=== PATIENT | male | born 1980 | race Caucasian/White ===

== ENCOUNTER 2018-11-29 06:42 | Day surgery (SDC) | payer OTHER ==
[~2018-11-29] VITALS: Ht 172.7 cm; Wt 73.5 kg
[~2018-11-29 06:42] MED LIST: NKM
[2018-11-29] MEDS ORDERED: LR 1000ml 1,000 ML IVLG SCH ×2 (06:55→07:00)
--- NOTE | 2018-11-29 06:58 | Anethesia Preoperative Eval ---
Anesthesia Pre-op PMH/ROS General Date of Evaluation: November 29, 2018 Time of Evaluation: 06:56 Anesthesiologist: margarita ASA Score: ASA 3 Mallampati Score Class I : Soft palate, uvula, fauces, pillars visible Class II: Soft palate, uvula, fauces visible Class III: Soft palate, base of uvula visible Class IV: Only hard plate visible Mallampati Classification: Class II Surgeon: yogesh Diagnosis: colon screening, family hx/o colon cancer Surgical Procedure: colonoscopy Anesthesia History: none Social History: smoking - nonsmoker Family History: no anesthesia problems Allergies: Coded Allergies: No Known Allergies (Unverified , 11/28/18) Medications: see eMAR Patient NPO?: Yes Past Medical History Pulmonary: Reports: asthma Gastrointestinal/Genitourinary: Reports: other - family hx/o colon cancer HEENT: Reports: other - sinusitis Musculoskeletal/Integumentary: Reports: other - back pain Anesthesia Pre-op Phys. Exam Physician Exam Last Vital Signs Date Time Temp Pulse Resp B/P (MAP) Pulse Ox O2 Delivery O2 Flow Rate FiO2 11/29/18 07:10 97.8 48 18 122/81 98 Room Air Constitutional: NAD Neurologic: CN 2-12 intact Cardiovascular: RRR Respiratory: CTA Gastrointestinal: S/NT/ND Airway Exam Mallampati Score: Class II MO: full Neck: flexible TMD: 2fb ROM: full Teeth: intact Anesthesia Pre-op A/P Risk Assessment & Plan Assessment: asa3 Plan: mac Status Change Before Surgery: No Pre-Antibiotics Drug: Melva Guerrero MD November 29, 2018 06:58
[2018-11-29] MEDS ORDERED: Midazolam 2mg/2ml Inj IVP PRN (07:00)
[2018-11-29] MEDS ORDERED: fentaNYL 100 mcg/2 mL IV PRN (07:00)
[2018-11-29] MEDS ORDERED: Atropine Inj 1mg/10ml Syr IV PRN (07:00)
[2018-11-29] MEDS ORDERED: DiphenhydrAMINE 50mg/ml Inj IVP PRN (07:00)
[2018-11-29 07:10] VITALS: BP 122/81
[2018-11-29] MEDS ORDERED: Atropine Sulfate 0.4mg/ml inj ONE (08:00)
[2018-11-29] MEDS ORDERED: Lidocaine 1% MPF 10mg/ml 5ml ONE (08:00)
[2018-11-29] MEDS ORDERED: Propofol 200mg/20ml IV ONE (08:00)
[2018-11-29] MEDS ORDERED: LR 1000ml ONE (08:00)
--- NOTE | 2018-11-29 08:17 | Pre-Procedure Note/Attestation ---
Pre-Procedure Note/Attestation Complete Prior to Procedure Planned Procedure: not applicable Procedure Narrative: Colonoscopy Indications for Procedure Pre-Operative Diagnosis: FH of colon CA Attestation I attest that I discussed the nature of the procedure; its benefits; risks and complications; and alternatives (and the risks and benefits of such alternatives ), prior to the procedure, with the patient (or the patient's legal technical service representative). I attest that, if there was a reasonable possibility of needing a blood transfusion, the patient (or the patient's legal technical service representative) was given the [facility] standardized written summary, pursuant to the Noah Krys Blood Safety Act ([place] Health and Safety Code # 1645, as amended). I attest that I re-evaluated the patient just prior to the surgery and that there has been no change in the patient's H&P, except as documented below: Sandra Guy MD November 29, 2018 08:17
--- NOTE | 2018-11-29 08:17 | Short Stay Surgery H&P ---
History of Present Illness History of Present Illness Chief Complaint see typed H&P HPI Louie Marcela Aakash is a 38 year old male who was admitted on for Family History Of Colon Cancer, Colon Screening Patient History Allergies: Coded Allergies: No Known Allergies (Unverified , 11/28/18) Medication History Scheduled No Known Medications* (NKM - No Known Medications*), 0 ., (Reported) Physical Exam Vital Signs Last Vital Signs Date Time Temp Pulse Resp B/P (MAP) Pulse Ox O2 Delivery O2 Flow Rate FiO2 11/29/18 07:10 97.8 48 18 122/81 98 Room Air Plan Attestation Are the patient's medical conditions optimized for surgery? Sandra Guy MD November 29, 2018 08:16
[2018-11-29 09:04] VITALS: BP 114/74
[2018-11-29 09:10] VITALS: BP 111/73
[2018-11-29 09:15] VITALS: BP 109/69
--- NOTE | 2018-11-29 09:17 | Immediate Post-Op Evaluation ---
Immediate Post-Op Evalulation Immediate Post-Op Evalulation Procedure: colonoscopy Date of Evaluation: November 29, 2018 Time of Evaluation: 09:16 IV Fluids: 650ml lr Blood Products: none Estimated Blood Loss: negligible Blood Pressure Systolic: 114 Blood Pressure Diastolic: 74 Pulse Rate: 67 Respiratory Rate: 18 O2 Sat by Pulse Oximetry: 99 Temperature (Fahrenheit): 97.3 Pain Score (1-10): 0 Nausea: No Vomiting: No Complications none Patient Status: awake, reacts, patent Hydration Status: adequate Drug: Melva Guerrero MD November 29, 2018 09:17
--- NOTE | 2018-11-29 09:19 | 48 Hour Post Anesthesia Eval ---
Post Anesthesia Evaluation Procedure: colonoscopy Date of Evaluation: November 29, 2018 Time of Evaluation: 09:17 Blood Pressure Systolic: 116 0: 74 Pulse Rate: 64 Respiratory Rate: 18 Temperature (Fahrenheit): 97.3 O2 Sat by Pulse Oximetry: 99 Airway: patent Nausea: No Vomiting: No Pain Intensity: 0 Hydration Status: adequate Cardiopulmonary Status: stable Mental Status/LOC: patient returned to baseline Post-Anesthesia Complications: none Follow-up care needed: N/A Melva Maher MD November 29, 2018 09:19
[2018-11-29 09:40] VITALS: BP 119/84
--- NOTE | 2018-11-29 09:46 | Endoscopy Procedure Note ---
Endoscopy Procedure Note General Indication for Procedure: FH of colon CA Procedures Performed: colonoscopy Operative Findings/Diagnosis: nl Specimen: none Pt Tolerated Procedure Well: Yes Estimated Blood Loss: none Anesthesia Anesthesiologist: Gerardo Conn Anesthesia: MAC Medications Medication Given: see anesthesia record Inserted Devices Implant(s) used?: No GI Core Measures 50 yrs or older w/o bx or poly: Not Applicable 10yrs. F/U recommended: Not Applicable If not recommended, why?: Sandra Guy MD November 29, 2018 09:46
--- NOTE | 2018-11-29 09:47 | Brief Operative Note ---
Immediate Post Operative Note Operative Note Chief Complaint: FH of CA Pre-op Diagnosis: FH of colon CA Procedure: Colon Post-op Diagnosis: normal Surgeon: yogesh Anesthesiologist: Gerardo Conn Anesthesia: MAC Specimen: none Complications: none Condition: stable Fluids: per anesthesia Estimated Blood Loss: none Drains: none Implant(s) used?: No Sandra Guy MD November 29, 2018 09:47
--- NOTE | 2018-11-29 12:17 | Diagnostic Imaging Report ---
Indication: Abdominal pain, status post colonoscopy Technique: Supine and upright views of the abdomen Comparison: none Findings: Colon is gas-filled, upper limits normal in caliber. Small bowel contains moderate amount of gas, nondilated. No significant air-fluid levels or evidence of free intraperitoneal air. No unusual masses or calcifications. Impression: Prominent gas-filled colon, expected status post colonoscopy. No free air to suggest colonic perforation. Images previously reviewed in person with Dr. Guy
--- NOTE | 2018-11-29 23:00 | Operative Note - Dictated ---
DATE OF OPERATION: 11/29/2018 GASTROENTEROLOGY PROCEDURE REPORT PROCEDURE: Colonoscopy. SURGEON: Sandra Guy M.D. ANESTHESIA: Please see the separate anesthesiologist notes for details. PREOPERATIVE DIAGNOSIS: Family history of colon cancer. POSTOPERATIVE DIAGNOSIS: Normal colonoscopy including 10 cm of the terminal ileum. PROCEDURE IN DETAIL: The procedure, its risks, indications, alternatives, and possible complications were explained and informed consent was obtained. Rectal exam was done. The colonoscope was introduced into the rectum and advanced to the terminal ileum for about 10 cm. The colonoscope was then gradually withdrawn and the mucosa examined carefully. No abnormalities were identified. Retroflexed view of the rectum was unremarkable. The colonoscope was removed. The patient was sent to Recovery in good condition. COMPLICATIONS: None. RECOMMENDATIONS: 1. To resume oral diet. 2. Outpatient followup with primary physician. Thank you for asking me to participate in the care of this patient. Sandra Guy M.D. DR: LAMBERTO JOB#: [id number] CC: Sia Espinal M.D. ; FAX#: [phone]
== END 2018-11-29 11:55 | disposition home or self-care (01) ==
LOC: GAS 06:42
DX: Z12.11 Encounter for screening for malignant neoplasm of colon (principal); Z80.0 Family history of malignant neoplasm of digestive organs; Z79.899 Other long term (current) drug therapy
CPT/HCPCS: 45378; 74019; J0461; J2704; 94003; 94150